=== PATIENT | female | born 1945 | race Caucasian/White ===

== ENCOUNTER 2025-04-30 06:19 | Day surgery (SDC) | payer MEDICARE, SELFPAY | END 2025-04-30 10:46 | disposition home or self-care (01) | LOC: GI 06:19 | PROVIDERS: ATTENDING PHYSICIAN Surgery | DX: Z12.11 Encounter for screening for malignant neoplasm of colon (principal); R19.5 Other fecal abnormalities; K57.30 Diverticulosis of large intestine without perforation or abscess without bleeding; D12.3 Benign neoplasm of transverse colon | CPT/HCPCS: 45385; 88305 ==